=== PATIENT | female | born 1990 ===

== ENCOUNTER 2018-05-20 10:26 | Inpatient (IN) | payer OTHER ==
[~2018-05-20] VITALS: Ht 160 cm; Wt 73.9 kg
[2018-05-30] MEDS ORDERED: PRENATAL TABLE1 EACH PO (11:28)
[2018-05-30] MEDS ORDERED: INTEGRA PLUS C1 EACH PO (11:28)
== END 2018-06-01 14:46 | disposition home or self-care (01) | DRG 775 ==
LOC: OB/GYN 05-28 15:15 → LDR 05-30 14:08 → OB/GYN 05-30 22:43
PROC: 10E0XZZ Delivery of Products of Conception, External Approach (ICD-10-PCS; principal; 2018-05-30)
PROC: 4A1HXCZ Monitoring of Products of Conception, Cardiac Rate, External Approach (ICD-10-PCS; 2018-05-30)
PROC: 4A033R1 Measurement of Arterial Saturation, Peripheral, Percutaneous Approach (ICD-10-PCS; 2018-05-30)
DX: O80 Encounter for full-term uncomplicated delivery (principal); Z37.0 Single live birth; Z3A.40 40 weeks gestation of pregnancy

== ENCOUNTER 2018-05-23 16:13 | Outpatient (CLI) | payer OTHER | END 2018-05-23 16:32 | disposition home or self-care (01) | LOC: NST 16:13 | DX: Z34.83 Encounter for supervision of other normal pregnancy, third trimester (principal) ==